=== PATIENT | female | born 2000 | race Caucasian/White ===

== ENCOUNTER 2024-12-01 17:23 | Emergency (ER) | payer MEDICAID ==
[~2024-12-01] VITALS: Ht 157.5 cm; Wt 62.0 kg
[2024-12-01 17:29] VITALS: O2SAT 100
[2024-12-01] MEDS: LEVETIRACETAM 500MG PREMIX 100 ML IV ONE (18:17)
[2024-12-01 18:23] LABS: BASOPHILS % 0.9 % (0.0-2.0); EOSINOPHILS % 1.9 % (0.0-5.0); HEMATOCRIT. 36.7 % (36.0-48.0); HEMOGLOBIN. 12.7 g/dL (12.0-16.0); LYMPHOCYTES % 18.3 % (20.0-50.0); MEAN PLATELET VOLUME 8.7 fl (7.4-10.4); MONOCYTES % 5.7 % (2.0-8.0); NEUTROPHILS % 73.2 % (40.0-76.0); PLATELET 244 x1000/uL (130-400); RED BLOOD CELL COUNT 4.27 mill/uL (4.2-5.4); RED CELL DISTRIBUTION WIDTH 13.4 % (11.6-14.6)
[2024-12-01 18:37] LABS: HCG SCREEN NEGATIVE
[2024-12-01 18:39] LABS: CREATININE 0.8 mg/dL (0.6-1.0)
[2024-12-01 18:40] LABS: UREA NITROGEN BLOOD 8 mg/dL (9-23)
[2024-12-01 18:41] LABS: ASPARTATE AMINOTRANSFERASE 15 IU/L (<34)
[2024-12-01 18:42] LABS: BILIRUBIN DIRECT < 0.1 mg/dL (<=3.0); BILIRUBIN TOTAL 0.4 mg/dL (0.1-1.0); PROTEIN TOTAL 7.0 g/dL (6.0-8.3)
[2024-12-01 21:00] VITALS: BP 95/85; PULSE 76; RESP 12; TEMP 36.8; O2SAT 100
== END 2024-12-01 21:00 | disposition home or self-care (01) ==
LOC: ER 17:23
DX: R56.9 Unspecified convulsions (principal); F20.9 Schizophrenia, unspecified; F32.A Depression, unspecified; Z88.8 Allergy status to other drugs, medicaments and biological substances
CPT/HCPCS: 99285; 96365; 70450; 80076; 80048; 84703; 85025; 36415; 93005; J1953

== ENCOUNTER 2024-12-21 11:53 | Emergency (ER) | payer MEDICAID ==
[~2024-12-21] VITALS: Ht 157.5 cm; Wt 59.0 kg
[2024-12-21 11:56] VITALS: O2SAT 99
[2024-12-21 13:15] LABS: BASOPHILS % 0.6 % (0.0-2.0); EOSINOPHILS % 0.6 % (0.0-5.0); HEMATOCRIT. 39.7 % (36.0-48.0); HEMOGLOBIN. 13.5 g/dL (12.0-16.0); LYMPHOCYTES % 26.4 % (20.0-50.0); MEAN PLATELET VOLUME 9.4 fl (7.4-10.4); MONOCYTES % 6.9 % (2.0-8.0); NEUTROPHILS % 65.5 % (40.0-76.0); PLATELET 246 x1000/uL (130-400); RED BLOOD CELL COUNT 4.52 mill/uL (4.2-5.4); RED CELL DISTRIBUTION WIDTH 13.6 % (11.6-14.6)
[2024-12-21] MEDS: ONDANSETRON HCL 4MG/2ML INJ IV ONE (13:20)
[2024-12-21] MEDS: FAMOTIDINE 20MG/2ML VIAL IV ONE (13:20)
[2024-12-21] MEDS: SODIUM CHLORIDE 0.9% 1,000 ML IV ONE (13:21)
[2024-12-21 13:31] LABS: HCG SCREEN NEGATIVE
[2024-12-21 13:33] LABS: CREATININE 0.9 mg/dL (0.6-1.0)
[2024-12-21 13:34] LABS: UREA NITROGEN BLOOD 8 mg/dL (9-23)
[2024-12-21 13:35] LABS: ASPARTATE AMINOTRANSFERASE 15 IU/L (<34); TROPONIN I HIGH SENSITIVITY < 4 ng/L (3.0-34)
[2024-12-21 13:36] LABS: BILIRUBIN DIRECT 0.1 mg/dL (<=3.0); BILIRUBIN TOTAL 0.4 mg/dL (0.1-1.0); PROTEIN TOTAL 7.0 g/dL (6.0-8.3)
[2024-12-21] MEDS: LORAZEPAM 2MG/ML UD SYRINGE IV NR (14:21)
[2024-12-21 21:03] LABS: CLARITY URINE CLEAR (CLEAR); GLUCOSE URINE NEGATIVE (NEGATIVE); KETONES URINE NEGATIVE (NEGATIVE); LEUKOCYTE ESTERASE URINE TRACE (NEGATIVE); NITRITE URINE NEGATIVE (NEGATIVE); OCCULT BLOOD URINE NEGATIVE (NEGATIVE); PH URINE 8.0 (4.5-8.0); PROTEIN URINE NEGATIVE (NEGATIVE); SPECIFIC GRAVITY URINE 1.006 (1.005-1.030); UROBILINOGEN URINE 0.2 E.U./dL (0.2-1.0)
[2024-12-21 21:17] LABS: *AMPHETAMINES SCREEN URINE NEGATIVE (NEGATIVE); *BARBITURATES SCREEN URINE NEGATIVE (NEGATIVE); *BENZODIAZEPINES SCREEN URINE NEGATIVE (NEGATIVE); *COCAINE SCREEN URINE NEGATIVE (NEGATIVE); CANNABINOID URINE SCREEN NEGATIVE (NEGATIVE); ECSTASY MDMA SCREEN URINE NEGATIVE (NEGATIVE); METHADONE URINE SCREEN NEGATIVE (NEGATIVE); OPIATES URINE SCREEN NEGATIVE (NEGATIVE); PHENCYCLIDINE URINE SCREEN NEGATIVE (NEGATIVE)
[2024-12-21 21:27] LABS: COLOR URINE STRAW (YELLOW)
[2024-12-21 21:28] LABS: BACTERIA URINE NONE SEEN; RBC URINE NONE SEEN /hpf (0-2); SQUAMOUS EPITHELIAL CELL URINE 1+ /lpf (RARE/1+); WBC URINE 0-2 /hpf (0-2)
[2024-12-22 13:10] VITALS: BP 114/62; PULSE 76; RESP 18; TEMP 37; O2SAT 100
== END 2024-12-22 13:34 | disposition home or self-care (01) ==
LOC: ER 11:53
DX: R53.1 Weakness (principal); F32.A Depression, unspecified; F20.9 Schizophrenia, unspecified; F41.9 Anxiety disorder, unspecified; Z20.822 Contact with and (suspected) exposure to COVID-19; Z79.899 Other long term (current) drug therapy; Z88.8 Allergy status to other drugs, medicaments and biological substances
CPT/HCPCS: 80076; 80305; 80048; 81003; 80307; 80329; 80320; 84703; 83690; 85025; 84484; 36415; 96361; 96374; 96375; 99291; 87426; J1308; J2060; J2405; J7030; Z7610 ×2; G0480